=== PATIENT | female | born 1945 | race Hispanic/Latino ===

== ENCOUNTER 2018-04-30 08:47 | Observation (INO) | payer MEDICARE ==
[~2018-04-30] VITALS: Ht 154.9 cm; Wt 90.7 kg
[2018-04-30] MEDS ORDERED: ACETAMINOPHEN/CODEINE ELIX 120-12 MG/5 ML UDC PO ONE (09:00)
[2018-04-30] MEDS ORDERED: IBUPROFEN 200 MG TAB PO STA (09:00)
[2018-04-30] MEDS ORDERED: ONDANSETRON HCL 4 MG ORAL DISINTEGRATING TAB PO ONE (09:00)
[2018-04-30] MEDS ORDERED: CEFTRIAXONE SOD 1 GM VIAL IM ONE (09:00)
[2018-04-30] MEDS ORDERED: VANCOMYCIN 750MG/NS 150ML IVPB 150 ML IV SCH (09:15)
[2018-04-30 09:33] LABS: STREPTOCOCCUS GRP A ANTIGEN POSITIVE (NEGATIVE)
[2018-04-30 09:37] LABS: INFLUENZAE A&B ANTIGEN (RAPID) NEGATIVE (NEGATIVE)
[2018-04-30] MEDS: SODIUM CHLORIDE 0.9% 1000ML 1,000 ML IV SCH ×2 (10:01→11:30)
[2018-04-30] MEDS ORDERED: CLONIDINE HCL 0.1 MG TAB PO PRN (10:15)
[2018-04-30] MEDS ORDERED: ONDANSETRON HCL INJ 2 MG/ML VIAL IV PRN (10:15)
[2018-04-30] MEDS ORDERED: ENALAPRILAT IV INJ 1.25 MG/ML VIAL IV PRN (10:15)
[2018-04-30] MEDS ORDERED: DIPHENHYDRAMINE HCL INJ 50 MG/ML VIAL IV PRN (10:15)
[2018-04-30] MEDS ORDERED: CLINDAMYCIN PHOS 900MG/ D5W 50 50 ML IV ONE (10:15)
[2018-04-30] MEDS ORDERED: ACETAMINOPHEN 325 MG TAB PO PRN (10:15)
[2018-04-30] MEDS ORDERED: LACTULOSE SYRUP 20 GM/30 ML UDC PO PRN (10:15)
[2018-04-30] MEDS ORDERED: ZOLPIDEM TARTRATE 5 MG TAB PO PRN (10:15)
[2018-04-30] MEDS ORDERED: METHYLPREDNISOLONE SOD SUCC 125 MG/2ML VIAL IV ONE (10:15)
[2018-04-30] MEDS ORDERED: HYDROMORPHONE 1MG/1ML INJ IV PRN (10:15)
[2018-04-30] MEDS ORDERED: LIDOCAINE HCL 1% 2 ML AMP INJ ONE (10:15)
[2018-04-30] MEDS ORDERED: CEFTRIAXONE SOD 1 GM VIAL IV ONE (10:20)
[2018-04-30 10:38] LABS: BASOPHILS % 0.1 % (0.0-1.0); EOSINOPHILS % 0.1 % (0.0-6.0); HEMATOCRIT 41.9 % (34.2-44.1); HEMOGLOBIN 14.5 g/dL (12.0-16.0); LYMPHOCYTES % 17.4 % (18.0-39.1); MEAN CORPUSCULAR HEMOGLOBIN 31.3 pg (28-32); MEAN CORPUSCULAR HGB CONC 34.6 g/dL (31-35); MEAN CORPUSCULAR VOLUME 90.3 fL (81-99); MONOCYTES # (AUTO) 0.9 (0.2-0.8); MONOCYTES % 8.1 % (4.4-11.3); NEUTROPHILS # (AUTO) 8.6 (2.1-6.9); PLATELET COUNT 256 x10e3/uL (140-360); RED BLOOD COUNT 4.64 x10e6/uL (3.6-5.1); RED CELL DISTRIBUTION WIDTH 12.4 % (11.7-14.4)
[2018-04-30] MEDS ORDERED: DEXTROSE 50% SYRINGE 50 ML IV PRN (10:45)
[2018-04-30 10:56] LABS: ALBUMIN 3.9 g/dL (3.5-5.0); ALBUMIN/GLOBULIN RATIO 0.9 (0.8-2.0); ANION GAP 16.6 mmol/L (8-16); CREATININE, SERUM 1.12 mg/dL (0.57-1.11); POTASSIUM 3.6 mmol/L (3.5-5.1)
[2018-04-30 11:13] VITALS: BP 131/62
[2018-04-30] MEDS: INSULIN REGULAR, HUMAN 100 UNIT/1 ML 3ML VIAL SQ SCH ×4 (11:30→20:50)
[2018-04-30] MEDS: CLINDAMYCIN PHOS 900MG/ D5W 50 50 ML IV SCH ×2 (12:52→20:52)
[2018-04-30 14:10] VITALS: BP 131/62
[2018-04-30 14:13] VITALS: BP 131/62
[2018-04-30] MEDS ORDERED: SODIUM CHLORIDE 0.9% 50ML 50 ML ONE (15:27)
[2018-04-30] MEDS ORDERED: IOPAMIDOL 370 MG/ML 200 ML INFUS..BTL INJ ONE (15:27)
[2018-04-30] MEDS ORDERED: LISINOPRIL2.5 MG PO (15:53)
[2018-04-30] MEDS ORDERED: AMOXICILLIN250 MG PO (15:53)
[2018-04-30] MEDS ORDERED: CHLORASEPTIC177 ML MT (15:53)
[2018-04-30] MEDS ORDERED: GLIMEPIRIDE2 MG PO (15:53)
[2018-04-30] MEDS ORDERED: ATORVASTATIN CA20 MG PO (15:53)
[2018-04-30] MEDS ORDERED: IBUPROFEN400 MG PO (15:53)
[2018-04-30] MEDS ORDERED: DIABETIC TUSSI118 ML PO (15:53)
[2018-04-30 16:00] VITALS: BP 114/58
--- NOTE | 2018-04-30 16:29 | Diagnostic Imaging Report ---
Exam: Soft tissue neck CT with IV contrast History: Sore throat, difficulty swallowing, right ear and tongue soreness x4 days, strep tonsillitis. Comparison studies: None Technique: Axial, coronal and sagittal images from the skull base to the thoracic inlet. Coronal and sagittal images reconstructed from the axial data. Intravenous contrast: 100 cc of Omnipaque 300. Findings: Upper aerodigestive tract: Evaluation oral cavity is limited by artifacts related to tell amalgam. No gross mass or enhancing in the oral cavity. No masses or abnormal enhancement elsewhere within the upper to just tract. No airway compromise. Soft tissues: No abnormalities. Masses: None identified. Lymph nodes: A few scattered nonnecrotic, mildly enhancing suprahyoid jugulodigastric and infraparotid lymph nodes maintain their reniform shape, are not significantly enlarged and are most likely reactive in the clinical context of acute infection. A few nonnecrotic, prevascular, paratracheal and precarinal lymph nodes which measures up to 10 mm are nonspecific and may also be be reactive. Vessels: Carotid and vertebral arteries and internal jugular veins are patent. Parotid glands: Normal in size and symmetric. No masses. Submandibular glands: The left submandibular gland is atrophic. Homogeneous, normal in size on the right. Included orbits: No abnormalities. Incidental bilateral intraocular lens replacements related to previous cataract surgery. Paranasal sinuses: Clear aside from mild mucosal thickening in the left maxillary sinus. Temporal bones: No gross abnormalities. Skull base and facial bones: Intact. Cervical spine: Straightened cervical curvature. Asymmetric left disc osteophyte complex and uncovertebral arthrosis moderate left foraminal stenosis at C5-C6. Anterior marginal bridging osteophyte from C4 to C7, largest at C5-C6 indent the prevertebral soft tissues. Incidental findings: Unerupted tooth within the left hard palate. Mostly CSF of sella, a nonspecific finding which can also be normal finding in a patient this age. IMPRESSION: 1. No mass, inflammatory changes, abscess or airway compromise. 2. Few scattered reactive lymph nodes. Signed by: Dr. Noble Hall M.D. on 04/30/2018 4:25 PM
[2018-04-30] MEDS ORDERED: CEPACOL SORE THROAT LOZENGES PO PRN (16:30)
[2018-04-30] MEDS ORDERED: CHLORASEPTIC SPRAY 177 ML BTL MM PRN (16:30)
[2018-04-30] MEDS: FAMOTIDINE 20 MG/2 ML VIAL IV SCH (17:11)
[2018-04-30] MEDS ORDERED: CLINDAMYCIN PHOS 900MG/ D5W 50 50 ML IV SCH (18:00)
[2018-04-30 19:30] VITALS: BP 168/78
[2018-04-30 20:00] VITALS: BP 168/78
[2018-04-30] MEDS: CEFTRIAXONE SOD 1 GM VIAL IV SCH (20:52)
[2018-05-01] VITALS: BP 138/67
[2018-05-01] MEDS: SODIUM CHLORIDE 0.9% 1000ML 1,000 ML IV SCH (01:46)
[2018-05-01] MEDS: CLINDAMYCIN PHOS 900MG/ D5W 50 50 ML IV SCH ×2 (03:57→11:00)
[2018-05-01 04:00] VITALS: BP 134/63
[2018-05-01] MEDS: INSULIN REGULAR, HUMAN 100 UNIT/1 ML 3ML VIAL SQ SCH (07:30)
[2018-05-01 07:31] LABS: CHOL/HDL RATIO 2.9 (3.0-3.6)
[2018-05-01] MEDS ORDERED: AUGMENTIN 875-1 EACH PO (07:48)
[2018-05-01] MEDS ORDERED: CHLORASEPTIC177 ML MT (07:49)
[2018-05-01 08:00] VITALS: BP 149/67
[2018-05-01] MEDS: FAMOTIDINE 20 MG/2 ML VIAL IV SCH (08:01)
[2018-05-01] MEDS: CEFTRIAXONE SOD 1 GM VIAL IV SCH (08:01)
[2018-05-01] MEDS ORDERED: GUAIFENESIN/DEXTROMETHORPHAN LIQD 5 ML UDC PO PRN (08:15)
--- NOTE | 2018-05-01 08:16 | History and Physical ---
PRIMARY CARE PHYSICIAN: Dr. Roddy Vital CHIEF COMPLAINT: Sore throat and difficulty swallowing. HISTORY OF PRESENT ILLNESS: This is a 72-year-old woman with a history of diabetes mellitus, who has been having a sore throat with sores in her mouth for several months. Went to an urgent care facility due to worsening symptoms and worsening cough. Even amoxicillin and other cough medicines, but unable to swallow the pill. Difficulty swallowing. Came to the hospital for further evaluation and management. PAST MEDICAL HISTORY: Diabetes mellitus, type 2, hyperlipidemia, hypertension. PAST SURGICAL HISTORY: Cataract surgery in February 2018. ALLERGIES: PER ELECTRONIC MEDICAL RECORD. FAMILY HISTORY/SOCIAL HISTORY: Patient is . She has 4 children. No illicits or cigarettes. She drinks alcohol occasionally. MEDICATIONS: Per electronic medical record. REVIEW OF SYSTEMS: Denies any dizziness, chest pain. Denies any back pain, headache, blurred vision. PHYSICAL EXAMINATION VITAL SIGNS: Have been reviewed. GENERAL: A tired-appearing woman resting in bed. HEENT: Anicteric. Pupils respond to light. No oral lesions visible. CARDIOVASCULAR: Normal S1 and S2. LUNGS: Moderate breath sounds. ABDOMEN: Soft, nontender and nondistended. EXTREMITIES: No edema or calf tenderness. NEUROLOGICAL: Alert and oriented times 3. Moving all extremities. SKIN: Dry. PSYCHIATRIC: Normal affect. LABS: Reviewed. MEDICATIONS: Reviewed. ASSESSMENT: A 72-year-old woman with: 1. Streptococcal throat. 2. Acute laryngitis. 3. Diabetes mellitus, type 2. 4. Obesity. 5. Acute kidney injury. 6. Hypertension. 7. Dysphagia. 8. Odynophagia. PLAN 1. Continue IV ceftriaxone and IV clindamycin. 2. The patient is doing better. Tolerating some oral diet. 3. Possible discharge later today. 4. Restart antihypertensive medications and treat with sliding scale insulin. 5. Obtain hemoglobin A1c and lipid panel. Hemoglobin A1c is actually 6.6, LDL 80 and triglycerides 76. 6. SCD for DVT prophylaxis. 7. Disposition. Possible discharge later today with amoxicillin and Chloraseptic spray. Job#: [id number]
[2018-05-01 10:23] VITALS: BP 144/67
[2018-05-01] MEDS ORDERED: DEXTROMETHORPHAN PO SCH (14:00)
[2018-05-01] MEDS ORDERED: IBUPROFEN 400 MG TAB PO SCH (14:00)
[2018-05-01] MEDS ORDERED: GUAIFENESIN PO SCH (14:00)
[2018-05-01] MEDS ORDERED: [UNRECOGNIZED DRUG - OTHER] PO SCH (14:00)
[2018-05-01] MEDS ORDERED: FAMOTIDINE 20 MG TAB PO SCH (16:30)
[2018-05-01] MEDS ORDERED: ATORVASTATIN 20 MG TAB PO SCH (21:00)
[2018-05-02] MEDS ORDERED: GLIMEPIRIDE 2 MG TAB PO SCH (07:30)
== END 2018-05-01 12:37 | disposition home or self-care (01) ==
LOC: ER 08:47 → ERHOLD 10:12 → IMCU 11:15 → MED/SURG2 17:23
PROVIDERS: ADMIT Internal Medicine; ATTEND Internal Medicine
DX: J02.0 Streptococcal pharyngitis (principal); E11.9 Type 2 diabetes mellitus without complications; E66.9 Obesity, unspecified; N17.9 Acute kidney failure, unspecified; F45.8 Other somatoform disorders; R13.10 Dysphagia, unspecified; I10 Essential (primary) hypertension; E78.5 Hyperlipidemia, unspecified; J04.0 Acute laryngitis
CPT/HCPCS: 36415 ×2; 70491; 80053; 80061; 82948 ×2; 83036; 83518; 85025; 87070; 87205; 87400; 96372; 99284; G0378 ×2; J0696 ×2; J2930; J7030 ×2; Q9967; J2001